=== PATIENT | male | born 1980 | race Caucasian/White ===

== ENCOUNTER → 2020-06-30 | Outpatient (CLI) | payer OTHER ==
[2020-06-30 15:21] LABS: Basophils # (A) 0.1 k/uL (0-0.2); Basophils % (A) 1 %; Eosinophils # (A) 0.2 k/uL (0-0.7); Eosinophils % (A) 3 %; HCT 45.9 % (39.0-53.0); HGB 15.2 gm/dL (13.0-17.5); Lymphocytes # (A) 2.4 k/uL (1.0-4.8); Lymphocytes % (A) 27 %; MCH 29.1 pg (25.0-35.0); MCV 88.2 fL (80.0-100.0); Mean Platelet Volume 6.8; Monocytes # (A) 0.5 k/uL (0-1.0); Monocytes % (A) 6 %; Neutrophils # (A) 5.7 k/uL (1.3-7.7); Neutrophils % (A) 63 %; Platelet Count 283 k/uL (150-450); RDW 11.7 % (11.5-15.5); WBC 9.1 k/uL (3.8-10.6)
[2020-07-01 01:17] LABS: African American GFR (CKD) 85.9 (60.0-200.0); Albumin 4.3 g/dL (3.80-4.90); Albumin/Globulin Ratio 2.26 (1.60-3.17); Anion Gap 9.5 mmol/L (4.00-12.00); Calcium 9.2 mg/dL (8.7-10.3); Carbon Dioxide 25.5 mmol/L (21.6-31.8); Globulin 1.9 g/dL (1.6-3.3); Non-African American GFR(CKD) 74.1 (60.0-200.0); Potassium 4.2 mmol/L (3.5-5.5); Total Bilirubin 0.5 mg/dL (0.3-1.2); Total Protein 6.2 g/dL (6.2-8.2)
== END | disposition home or self-care (01) ==
LOC: LABWHC1 14:36
PROVIDERS: ATTEND Nurse Practitioner
DX: R10.11 Right upper quadrant pain (principal)
CPT/HCPCS: 36415; 80053; 85025

== ENCOUNTER → 2020-07-21 | Outpatient (CLI) | payer OTHER ==
--- NOTE | 2020-07-21 10:30 | US ---
EXAMINATION TYPE: US liver DATE OF EXAM: 07/21/2020 COMPARISON: NONE CLINICAL HISTORY: R10.11 RUQ PAIN. acid reflux, RUQ pain EXAM MEASUREMENTS: Liver Length: 15.8 cm Gallbladder Wall: 0.3 cm CBD: 0.5 cm Right Kidney: 10.2 x 4.4 x 5.3 cm Pancreas: limited views appear wnl. Largely obscured by bowel gas Liver: difficult to penetrate, intercostal imaging . Mild to moderate fatty infiltration liver Gallbladder: mobile debris seen with borderline wall thickening, neck fold seen Evidence for sonographic Branham's sign: no CBD: wnl Right Kidney: wnl IMPRESSION: 1. Borderline gallbladder wall thickening intragallbladder debris. Findings are nonspecific but can b e associated with cholecystitis. Clinical correlation recommended. 2. Mild to moderate fatty infiltration the liver. 3. Bowel gas limits the exam
== END | disposition home or self-care (01) ==
LOC: RADUSWWP 08:58
PROVIDERS: ATTEND Internal Medicine Gastroenterology
DX: K76.0 Fatty (change of) liver, not elsewhere classified (principal); R14.3 Flatulence; K82.9 Disease of gallbladder, unspecified
CPT/HCPCS: 76705